=== PATIENT | male | born 1980 | race Caucasian/White ===

== ENCOUNTER 2023-03-13 10:01 | Emergency (ER) | payer OTHER ==
[~2023-03-13] VITALS: Ht 172.7 cm; Wt 73.0 kg
[2023-03-13 10:04] VITALS: BP 130/87
== END 2023-03-13 11:10 | disposition home or self-care (01) ==
LOC: ER 10:01
DX: R07.89 Other chest pain (principal)
CPT/HCPCS: 71045; 99283